=== PATIENT | female | born 1960 | race Caucasian/White ===

== ENCOUNTER → 2017-02-02 | Outpatient (CLI) | payer OTHER ==
[~2017-02-02] MED LIST: CALC-603 PO; CHOL400C7 PO; CYCL-375 PO; LACT1CAP80 PO; LEVO100T12 PO; MULT-933 PO; TAMO10TA PO; TETR15DR99 BOTH EYES
[2017-02-02 10:42] LABS: BASOPHILS # (AUTO) 0.1 T/MM3 (0-0.2); BASOPHILS % (AUTO) 1.9 % (0-2); EOSINOPHILS # (AUTO) 0.2 T/MM3 (0-0.5); EOSINOPHILS % (AUTO) 6.7 % (0-4); HCT - HEMATOCRIT 41.5 % (36-46); HGB - HEMOGLOBIN 13.8 GM/DL (12-16); LYMPHOCYTES % (AUTO) 38.1 % (23-45); MEAN CORPUSCULAR HGB 30.3 UUG (26-34); MEAN CORPUSCULAR HGB CONC(MCHC 33.3 GM/DL (31-37); MEAN CORPUSCULAR VOLUME 91.2 UM3 (80-100); MEAN PLATELET VOLUME 10.6 UM3 (9.4-12.4); MONOCYTES # (AUTO) 0.3 T/MM3 (0-0.8); MONOCYTES % (AUTO) 11.5 % (0-9.0); NEUTROPHILS #(AUTO)-ABSOLUTE 1.1 T/MM3 (1.8-7.7); NEUTROPHILS % (AUTO) 41.8 % (33-66); RED BLOOD COUNT 4.55 M/MM3 (4.00-5.20); WBC - WHITE BLOOD COUNT 2.7 T/MM3 (4.5-11.0)
[2017-02-02 10:53] LABS: ALBUMIN 4.1 G/DL (3.5-5.0); ALBUMIN/GLOBULIN RATIO 1.1 RATIO (1.1-2.2); ALKALINE PHOSPHATASE 103 U/L (38-126); ALT (SGPT) 49 U/L (9-52); ANION GAP 11 MEQ/L (5-15); AST (SGOT) 49 U/L (14-36); BUN/CREATININE RATIO 16 RATIO (6-26); CALCIUM 9.4 MG/DL (8.4-10.2); CHLORIDE 103 MEQ/L (98-107); CO2 - CARBON DIOXIDE 29 MEQ/L (22-30); CREATININE 0.8 MG/DL (0.7-1.2); GLOMERULAR FILTRATION RATE 74; GLUCOSE 88 MG/DL (65-110); POTASSIUM 4.1 MEQ/L (3.6-5); SODIUM 143 MEQ/L (134-144); TOTAL PROTEIN 7.7 G/DL (6.3-8.2)
[2017-02-02 11:23] LABS: THYROID STIM HORMONE-TSH 1.43 MIU/L (0.47-4.68)
[2017-02-05 01:41] LABS: T3 FREE - BATCH 3.45 PG/ML (2.77-5.27)
[2017-02-05 01:42] LABS: FREE T4 (FREE THYROXINE)-BATCH 1.47 NG/DL (0.78-2.19)
== END ==
LOC: LAB 10:15
PROVIDERS: ATTEND Family Medicine
DX: Z01.818 Encounter for other preprocedural examination (principal); E03.9 Hypothyroidism, unspecified
CPT/HCPCS: 36415; 80053; 84432; 84439; 84443; 84481; 85025; 86376; 86800; 93005